=== PATIENT | female | born 1970 | race Caucasian/White ===

== ENCOUNTER 2017-10-22 07:59 | Emergency (ER) | payer MEDICARE, OTHER ==
[~2017-10-22] VITALS: Ht 160 cm; Wt 59.0 kg
[2017-10-22 08:10] VITALS: BP 135/65
--- NOTE | 2017-10-22 08:58 | ED.ADGEN ---
Past History Past Medical History: Anxiety, Bipolar, Migraines, Seizure Past Surgical History: No Surgical History Alcohol Use: None Drug Use: None Adult General Chief Complaint Chief Complaint Medication refill request [facility] Patient is a 47-year-old female who presents with medication refill request. Patient is currently out of all her medications and has been so for the past 30 days. She does not have any other medical complaint other than she is unable to see a primary care provider to have her medications filled. Patient is recently relocated from the [facility] and new to [place] within the past 60 days.[ ] Review of Systems Review of Systems ROS as per HPI All other systems were reviewed and found to be within normal limits, except as documented in this note. Allergies Allergies Allergies Coded Allergies Type Severity Reaction Last Updated Verified Fish Containing Products Allergy Severe 10/22/17 Yes Penicillins Allergy Severe 10/22/17 Yes Sulfa (Sulfonamide Antibiotics) Allergy Severe 10/22/17 Yes divalproex sodium Allergy Severe 10/22/17 Yes phenytoin Allergy Severe 10/22/17 Yes aspirin Allergy Mild 10/22/17 Yes Physical Exam Physical Exam Constitutional: Well developed, well nourished, no acute distress, non-toxic appearance. [] HENT: Normocephalic, atraumatic, bilateral external ears normal, oropharynx moist, no oral exudates, nose normal. [] Eyes: PERRLA, EOMI, conjunctiva normal, no discharge. [] Neck: Normal range of motion, no tenderness. [] Cardiovascular:Heart rate regular rhythm. [] Lungs & Thorax: Bilateral breath sounds clear to auscultation [] Abdomen: Bowel sounds normal, soft, no tenderness. [] Skin: Warm, dry. [] Back: No tenderness. [] Extremities: No tenderness. [] Neurologic: Alert and oriented X 3, normal motor function, normal sensory function, no focal deficits noted. [] Psychologic: Affect, anxious[] Current Patient Data Vital Signs Vital Signs Date Time Temp Pulse Resp B/P (MAP) Pulse Ox O2 Delivery O2 Flow Rate FiO2 10/22/17 08:10 98.0 88 16 99 Room Air EKG EKG ] Radiology/Procedures Radiology/Procedures [] Course & Med Decision Making Course & Med Decision Making Pertinent Labs and Imaging studies reviewed. (See chart for details) [Patient unsure of medication list and doses. I offered to refill patient's nonnarcotic medications until she can get into a primary care provider. Patient will go to the pharmacy and contact the ED sore refill request can be authorized. Final Impression Final Impression [1. Medication refill request] Dragon Disclaimer Dragon Disclaimer This electronic medical record was generated, in whole or in part, using a voice recognition dictation system. MELY BRICEÑO DO Oct 22, 2017 08:58
== END 2017-10-22 08:45 | disposition home or self-care (01) ==
LOC: ER 07:59
DX: Z76.0 Encounter for issue of repeat prescription (principal); F41.9 Anxiety disorder, unspecified; F31.9 Bipolar disorder, unspecified; G43.909 Migraine, unspecified, not intractable, without status migrainosus; Z88.2 Allergy status to sulfonamides; Z88.8 Allergy status to other drugs, medicaments and biological substances; Z88.6 Allergy status to analgesic agent; Z88.0 Allergy status to penicillin; Z91.013 Allergy to seafood
CPT/HCPCS: 99281

== ENCOUNTER 2018-03-15 03:15 | Emergency (ER) | payer MEDICARE, OTHER ==
--- NOTE | 2018-03-15 03:41 | PHYS DOC ---
Text Text Diagnosis Ischemic stroke CT scan no evidence of acute pathology patient is not candidate for TPA because she is out of the window since her symptoms started at 4 PM and she presented to the emergency department at 3 AM next day( 11 hours later) Plan to transfer the patient to [facility]. Case discussed with Dr. Love, General Chief Complaint: ALTERED MENTAL STATUS Stated Complaint: ALTERED MENTAL STATUS Time Seen by MD: 03:22 Source: family ( and son ) Exam Limitations: clinical condition History of Present Illness Timing/Duration: other ( today at 4 PM with right -sided weakness , and upper extremity and lower extremity, she did not seek any medical attention she went to bed and woke up with complete dialysis on the right side) Associated Symptoms: paresthesia, slurred speech, trouble walking, weakness ( complete weakness on the right side and facial droop on the right side) Allergies: Coded Allergies: Fish Containing Products (Verified Allergy, Severe, 10/22/17) Penicillins (Verified Allergy, Severe, 10/22/17) Sulfa (Sulfonamide Antibiotics) (Verified Allergy, Severe, 10/22/17) divalproex sodium (Verified Allergy, Severe, 10/22/17) phenytoin (Verified Allergy, Severe, 10/22/17) aspirin (Verified Allergy, Mild, 10/22/17) Past Medical History Neuro/Medical History: seizure, other (noncompliance with medication) Surgical History: no surgical history Family History Significant Family History: heart disease Social History Smoker: non-smoker Alcohol: none Drugs: none Review of Systems Constitutional: other (review of systems negative due to patient medical status ) Respiratory: no symptoms reported Cardiovascular: no symptoms reported Gastrointestinal: no symptoms reported Skin: no symptoms reported Physical Exam General Appearance: moderate distress Eyes: bilateral eye normal inspection, bilateral eye PERRL, bilateral eye EOMI Ears, Nose, Throat: normal ENT inspection, hearing grossly normal, TMs normal, pharynx normal Neck: non-tender Respiratory: chest non-tender, lungs clear, normal breath sounds Cardiovascular: normal peripheral pulses, regular rate, rhythm, no edema, no gallop Peripheral Pulses: 4+ carotid (R), 4+ carotid (L), 4+ femoral (R), 4+ femoral ( L), 4+ dorsalis pedis (R) Gastrointestinal: normal bowel sounds, non tender, soft, no organomegaly, no pulsatile mass Cranial Nerves: facial droop (right ), facial paresthesias, facial weakness Motor/Sensory: sensory deficit, weak motor strength RUE, weak motor strength RLE, other (NIH's score is 20) Skin: normal color Orders, Labs, Meds Patient had CBC CMP EKG CT scan of the brain without contrast IV fluids, Plavix Discussed the case with the family To be transferred to [facility] Critical Care Note Total Time (mins): 35 FREEMAN MARRERO MD Mar 15, 2018 03:41
--- NOTE | 2018-03-15 03:49 | RAD ---
CT brain without contrast HISTORY: Code stroke, unresponsive, altered mental status CT scan of the brain was done without contrast. Sinuses are clear. There is no intracranial hemorrhage or subdural hematoma. There is no mass or shift of the midline. An acute CVA is not identified. Ventricles are normal in size. IMPRESSION: 1. No intracranial hemorrhage or acute finding noted. The emergency room physician was called and notified of findings at 3:33 AM. FOR INTERNAL CODING PURPOSES Critical result: RESULT CODE: (C) PQRS Compliance Statement: One or more of the following individualized dose reduction techniques were utilized for this examination: 1. Automated exposure control 2. Adjustment of the mA and/or kV according to patient size 3. Use of iterative reconstruction technique Electronically signed by: Amor Dinh MD (03/15/2018 3:45 AM) [id number]
[2018-03-15] MEDS ORDERED: CLOPIDOGREL BISULFATE 75 MG TABLET PO ONE (04:00)
[2018-03-15] MEDS ORDERED: IV NORMAL SALINE 1,000ML 1,000 ML IV ONE (04:00)
[2018-03-15] MEDS ORDERED: CONTRAST GIVEN MC PRN (04:00)
[2018-03-15 04:20] VITALS: BP 105/53
[2018-03-15] MEDS ORDERED: IOHEXOL 300 MG/ML 50 ML VIAL. IV ONE ×2 (04:30)
--- NOTE | 2018-03-15 17:34 | EKG ---
[address] [address] Test Date: 2018-03-15 Test Time: 03:31:30 Pat Name: ASHLEE MARLOW Department: Room: Gender: F Craniologist: FRANK : 1970 Requested By: FREEMAN MARRERO Order Number: [id number] Reading MD: Nathan To Measurements Intervals [place] Rate: 69 P: 63 MS: 126 QRS: 70 QRSD: 80 T: 62 QT: 374 QTc: 402 Interpretive Statements SINUS RHYTHM NONSPECIFIC ST-T WAVE CHANGES. Electronically Signed On 03-22-2018 10:38:44 OPERATION SPECIALIST by Nathan To
== END 2018-03-15 04:25 | disposition short-term general hospital (02) ==
LOC: ER 03:15
DX: I63.9 Cerebral infarction, unspecified (principal); R29.810 Facial weakness; R47.81 Slurred speech; G83.21 Monoplegia of upper limb affecting right dominant side; G83.11 Monoplegia of lower limb affecting right dominant side; Z88.2 Allergy status to sulfonamides; Z88.0 Allergy status to penicillin; Z88.8 Allergy status to other drugs, medicaments and biological substances; Z88.6 Allergy status to analgesic agent; Z91.013 Allergy to seafood
CPT/HCPCS: 70450; 93005; 99285-25; 99291-25; J7030